=== PATIENT | female | born 1935 | race Caucasian/White ===

== ENCOUNTER → 2018-01-31 | Outpatient (CLI) | payer OTHER ==
[~2018-01-31] MED LIST: CALCIUM CITRAT250 MG; COLESTID1 GM; FLEXERIL PO; FLONASE 0.05%50 MCG NASAL; GLUCOSAMINE &1 EACH; JANUVIA100 MG; LEVEMIR FL100 UNIT/1 SQ; LEVEMIR FL100 UNIT/2 SUBQ; LOPRESSOR 50 MG50 M1 PO; LORAZEPAM 0.50.5 MG PO; PREDNISONE 20 M20 M1 PO; PREDNISONE50 MG PO; PRINZIDE 20-251 EACH PO; TIZANIDINE HCL4 MG PO; VALSARTAN/HCTZ; VENTOLIN HFA 1818 GM INH; VITAMIN D-32000 UNIT PO; VOLTAREN GEL 1100 G2; ZPAK PO
== END ==
LOC: M.RAD 14:15
DX: M51.36 Other intervertebral disc degeneration, lumbar region (principal); M43.27 Fusion of spine, lumbosacral region; I70.0 Atherosclerosis of aorta

== ENCOUNTER → 2018-05-27 | Outpatient (CLI) | payer OTHER | LOC: M.RAD 11:03 | DX: S92.322A Displaced fracture of second metatarsal bone, left foot, initial encounter for closed fracture (principal); S97.82XA Crushing injury of left foot, initial encounter; X58.XXXA Exposure to other specified factors, initial encounter; Y93.89 Activity, other specified; Y92.89 Other specified places as the place of occurrence of the external cause; Y99.8 Other external cause status; W19.XXXA Unspecified fall, initial encounter ==

== ENCOUNTER 2018-11-30 04:53 | Emergency (ER) | payer OTHER ==
[~2018-11-30] VITALS: Ht 154.9 cm; Wt 93.0 kg
[2018-11-30] MEDS ORDERED: FLONASE 0.05%50 MCG (05:07)
[2018-11-30] MEDS ORDERED: IRBESARTAN-HCT1 EACH (05:08)
[2018-11-30] MEDS ORDERED: ZETIA10 MG (05:08)
[2018-11-30 05:31] LABS: ABSOLUTE BASOPHILS 0.1 thou/uL (0.0-0.2); ABSOLUTE EOSINOPHILS 0.1 thou/uL (0.0-0.7); ABSOLUTE LYMPHOCYTES 2.2 thou/uL (0.8-5.3); ABSOLUTE MONOCYTES 0.4 thou/uL (0.0-1.2); ABSOLUTE NEUTROPHILS 3.4 thou/uL (1.6-8.1); BASOPHILS 0.8 %; HEMATOCRIT 39.7 % (37.0-47.0); HEMOGLOBIN 13.5 gm/dL (12.0-15.0); LYMPHOCYTES 35.9 %; MCH 28.4 pg (26.0-34.0); MCHC 33.9 g/dL (28.0-37.0); MCV 83.7 fL (80.0-100.0); MONOCYTES 6.5 %; MPV 9.2 fl. (7.2-11.1); NUCLEATED RBCS 0 /100WBC; PLATELET COUNT* 186 thou/uL (150-400); POLYS 55.8 %; RBC 4.74 mil/uL (4.20-5.00); RDW-CV 13.8 % (10.5-14.5); WBC 6.2 thou/uL (4.0-11.0)
[2018-11-30 05:55] LABS: ALKALINE PHOSPHATASE 89 U/L (46-116); ANION GAP 12 mmol/L (7-16); BUN 26 mg/dL (7-18); CALCIUM 9.3 mg/dL (8.5-10.1); CHLORIDE 105 mmol/L (98-107); CO2 26 mmol/L (21-32); CREATININE 1.3 mg/dL (0.6-1.3); GLUCOSE 263 mg/dL (70-99); POTASSIUM 3.9 mmol/L (3.5-5.1); SGOT 23 U/L (15-37); SGPT 36 U/L (30-65); SODIUM 143 mmol/L (136-145); TOTAL BILIRUBIN 0.2 mg/dL (<0.1-1.0); TOTAL PROTEIN 6.2 g/dL (6.4-8.2); TROPONIN-I LEVEL <0.06 ng/mL (<0.06)
[2018-11-30] MEDS ORDERED: PREDNISONE50 MG PO (05:59)
[2018-11-30] MEDS ORDERED: VENTOLIN HFA 1818 GM INH (05:59)
[2018-11-30 06:29] VITALS: BP 122/63
--- NOTE | 2018-11-30 12:09 | EKG ---
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 : 1935 Requested By: Amado Marvin Order Number: [id number] MD: Winston Briones Measurements Intervals [place] Rate: 58 P: 2 VT: 250 QRS: -21 QRSD: 94 T: 91 QT: 453 QTc: 445 Interpretive Statements Sinus rhythm Prolonged VT interval Borderline left axis deviation Borderline T wave abnormalities Compared to ECG 02/24/2017 03:23:42 T-wave abnormality now present Electronically Signed On 11-30-2018 12:09:22 CDT by Winston Briones [email or web address] <ELECTRONICALLY SIGNED> By: Winston Briones MD, [facility] 11/30/18 1209 0500 0500 Winston Briones MD, [facility] /EPI
== END 2018-11-30 06:29 | disposition home or self-care (01) ==
LOC: M.ERS 04:53
PROVIDERS: Emergency Medicine Emergency Medical Services
DX: J45.909 Unspecified asthma, uncomplicated (principal); I10 Essential (primary) hypertension; E11.9 Type 2 diabetes mellitus without complications; Z90.49 Acquired absence of other specified parts of digestive tract; Z90.710 Acquired absence of both cervix and uterus; Z87.891 Personal history of nicotine dependence; Z88.1 Allergy status to other antibiotic agents

== ENCOUNTER 2018-12-18 05:33 | Inpatient (IN) | payer OTHER ==
[~2018-12-18] VITALS: Ht 154.9 cm; Wt 108.0 kg
[~2018-12-18 05:33] MED LIST changes: -COLESTID1 GM; +COLESTID1 GM PO; +FLONASE 0.05%50 MCG; +IRBESARTAN-HCT1 EACH PO; -JANUVIA100 MG; +JANUVIA100 MG PO; +ZETIA10 MG
[2018-12-18 05:36] VITALS: BP 153/62
[2018-12-18] MEDS ORDERED: PROAIR HFA8.5 GM INH (05:54)
[2018-12-18] MEDS ORDERED: LEVEMIR SUBQ (05:55)
[2018-12-18 06:13] LABS: APTT 27.3 Seconds (25.0-31.3); PROTIME 10.5 Seconds (9.20-11.50)
[2018-12-18 06:19] LABS: ANION GAP 8 mmol/L (7-16); BUN 18 mg/dL (7-18); CALCIUM 9.3 mg/dL (8.5-10.1); CHLORIDE 105 mmol/L (98-107); CO2 27 mmol/L (21-32); CREATININE 1.1 mg/dL (0.6-1.3); GLUCOSE 286 mg/dL (70-99); POTASSIUM 4.1 mmol/L (3.5-5.1); SODIUM 140 mmol/L (136-145)
[2018-12-18 06:21] LABS: ABSOLUTE BASOPHILS 0.1 thou/uL (0.0-0.2); ABSOLUTE EOSINOPHILS 0.1 thou/uL (0.0-0.7); ABSOLUTE LYMPHOCYTES 1.8 thou/uL (0.8-5.3); ABSOLUTE MONOCYTES 0.4 thou/uL (0.0-1.2); ABSOLUTE NEUTROPHILS 3.8 thou/uL (1.6-8.1); BASOPHILS 0.8 %; EOSINOPHILS 1.4 %; HEMATOCRIT 41.8 % (37.0-47.0); LYMPHOCYTES 29.8 %; MCH 28.2 pg (26.0-34.0); MCHC 33.5 g/dL (28.0-37.0); MCV 84.1 fL (80.0-100.0); MONOCYTES 6.5 %; MPV 9.7 fl. (7.2-11.1); NUCLEATED RBCS 0 /100WBC; PLATELET COUNT* 192 thou/uL (150-400); POLYS 61.5 %; RBC 4.97 mil/uL (4.20-5.00); RDW-CV 13.7 % (10.5-14.5); WBC 6.1 thou/uL (4.0-11.0)
[2018-12-18 06:22] LABS: ALBUMIN 3.2 g/dL (3.4-5.0); ALKALINE PHOSPHATASE 106 U/L (46-116); LIPASE 218 U/L (73-393); MAGNESIUM 1.8 mg/dL (1.8-2.4); NT-PRO BRAIN NAT PEPTIDE 781 pg/mL (<300); SGOT 29 U/L (15-37); SGPT 47 U/L (30-65); TOTAL BILIRUBIN 0.4 mg/dL (<0.1-1.0); TOTAL PROTEIN 6.3 g/dL (6.4-8.2); TROPONIN-I LEVEL <0.06 ng/mL (<0.06)
[2018-12-18 08:09] VITALS: BP 128/51
[2018-12-18 08:30] VITALS: BP 108/57
[2018-12-18 10:30] VITALS: BP 148/60
--- NOTE | 2018-12-18 10:56 | EKG ---
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: Augusta PINEDA : 1935 Requested By: Aaron Kinney Order Number: [id number] MD: Tomy Johnson Measurements Intervals [place] Rate: 54 P: 2 CA: 205 QRS: -25 QRSD: 91 T: 118 QT: 479 QTc: 454 Interpretive Statements Sinus rhythm Probable LVH with secondary repol abnrm Compared to ECG 11/30/2018 05:00:24 First degree AV block no longer present T-wave abnormality no longer present Electronically Signed On 12-18-2018 10:56:26 CDT by Tomy Johnson [email or web address] <ELECTRONICALLY SIGNED> By: Tomy Johnson MD, [facility] 12/18/18 1056 0543 0543 Tomy Johnson MD, FAC /EPI
--- NOTE | 2018-12-18 11:26 | NUR ---
PT TO UNIT FROM ORTHO FLOOR AT APPROX 1030. PT ALERT AND ORIENTED. TELE TRACKING NSR WITH 1ST AVB AND ALL VSS ON 2L. PT SSTATES BREATHING FEELS IMPROVED WITH SUPP O2. DENIES CP, SOA. EDUCATED ON SAFETY AND PLAN OF CARE. PLEASE SEE ASSESSMENT FOR ADDITIONAL INFORMATION. WILL CONT TO MONITOR
--- NOTE | 2018-12-18 12:33 | NUR ---
Nutrition: Consult received "autopopulate." Pt admitted with SOA. Hx COPD, former smoker. Wt is ~205#. Albumin 3.2, BG 289-425. RX: solumedrol, insulin, D3, linagliptin. Acute bronchitis and COPD exac. Apparently, breathing is better. GOALS: better BG control, >75% of meals consumed. Low nutrition risk at this time.
[2018-12-18 15:29] VITALS: BP 157/55
--- NOTE | 2018-12-18 16:18 | 2DMMODE ---
[place] [address] 2 D/M-MODE ECHOCARDIOGRAM Name: LORENZA TRAMMELL Room: [address] IN [facility]#: [id number] Admission: 12/18/18 Attend Phys: Bartolo Arevalo Discharge: Date of : 39 Date of Service: 12/18/18 1618 Report #: [id number] THIS REPORT FOR: //name// APPROVED REPORT Study performed: 12/18/2018 13:05:30 EXAM: Comprehensive 2D, Doppler, and color-flow Echocardiogram Patient Location: In-Patient Room #: [facility] Status: routine BSA: 1.91 HR: 73 bpm BP: 148/60 mmHg Rhythm: NSR Other Information Study Quality: Good Indications Elevated bnp 2D Dimensions IVSd: 14.17 (7-11mm) LVOT Diam: 19.62 (18-24mm) LVDd: 47.32 mm PWd: 13.25 (7-11mm) Ascending Ao: 29.69 (22-36mm) LVDs: 28.26 (25-40mm) Aortic Root: 30.42 mm Volumes Left Atrial Volume (Systole) LA ESV Index: 60.30 mL/m2 Aortic Valve AoV Peak Jake.: 1.81 m/s AO Peak Gr.: 13.09 mmHg LVOT Max P.00 mmHg AO Mean Gr.: 7.43 mmHg LVOT Mean P.67 mmHg LVOT Max V: 1.87 m/s AO V2 VTI: 37.53 cm LVOT Mean V: 1.30 m/s JASPREET (VTI): 3.05 cm2 LVOT V1 VTI: 37.88 cm Mitral Valve MV Mean Gr.: 8.43 mmHg E/A Ratio: 0.79 MV Decel. Time: 334.29 ms MV E Max Jake.: 1.43 m/[place] [address] 2 D/M-MODE ECHOCARDIOGRAM Name: LORENZA TRAMMELL Room: [address] IN ..#: [id number] Admission: 12/18/18 Attend Phys: Bartolo Arevalo Discharge: Date of : 39 Date of Service: 12/18/18 1618 Report #: [id number] MV PHT: 96.94 ms MVA (PHT): 2.27 cm2 TDI E/Lateral E': 14.30 E/Medial E': 28.60 Medial E' Jake.: 0.05 m/s Lateral E' Jake.: 0.10 m/s Pulmonary Valve PV Peak Jake.: 1.01 m/s PV Peak Gr.: 4.12 mmHg Left Ventricle The left ventricle is normal size. There is normal LV segmental wall motion. Moderate concentric left ventricular hypertrophy. Left ventricular systolic function is normal. The left ventricular ejection fraction is within the normal range. LVEF is 65-70%. Grade I - abnormal relaxation pattern. Right Ventricle The right ventricle is normal size. The right ventricular systolic function is normal. Atria Left atrium is severely dilated. The right atrium size is normal. Aortic Valve The aortic valve is normal in structure. No aortic regurgitation is present. There is no aortic valvular stenosis. Mitral Valve Severe mitral annular calcification.Reduced mitral leaflet excursion. There is no mitral valve regurgitation noted. Moderate mitral stenosis. Tricuspid Valve The tricuspid valve is normal in structure. Unable to assess PA pressure. Trace tricuspid regurgitation. Pulmonic Valve The pulmonary valve is normal in structure. Trace pulmonic regurgitation. Great Vessels The aortic root is normal in size. [place] [address] 2 D/M-MODE ECHOCARDIOGRAM Name: LORENZA TRAMMELL Room: [address] IN [facility]#: [id number] Admission: 12/18/18 Attend Phys: Bartolo Arevalo Discharge: Date of : 39 Date of Service: 12/18/18 1618 Report #: [id number] Pericardium There is no pericardial effusion. <Conclusion> LVEF is 65-70%. Moderate concentric left ventricular hypertrophy. There is normal LV segmental wall motion. Severe mitral annular calcification.Reduced mitral leaflet excursion. Moderate mitral stenosis. There is no mitral valve regurgitation noted. Left atrium is severely dilated. There is no aortic valvular stenosis. No aortic regurgitation is present. <ELECTRONICALLY SIGNED> By: Tomy Johnson MD, FACC 12/18/18 1618 1618 1618 Tomy Johnson MD, FACC /INF
[2018-12-18 19:30] VITALS: BP 171/80
[2018-12-19 00:02] VITALS: BP 164/63
[2018-12-19 04:00] VITALS: BP 130/55
[2018-12-19 04:01] LABS: HEMATOCRIT 39.5 % (37.0-47.0); HEMOGLOBIN 13.4 gm/dL (12.0-15.0); MCH 28.8 pg (26.0-34.0); MCV 84.6 fL (80.0-100.0); MPV 9.5 fl. (7.2-11.1); RBC 4.67 mil/uL (4.20-5.00); RDW-CV 13.9 % (10.5-14.5); WBC 7.2 thou/uL (4.0-11.0)
[2018-12-19 04:23] LABS: CALCIUM 9.6 mg/dL (8.5-10.1); CREATININE 1.4 mg/dL (0.6-1.3); MAGNESIUM 1.7 mg/dL (1.8-2.4); POTASSIUM 4.1 mmol/L (3.5-5.1)
--- NOTE | 2018-12-19 05:48 | NUR ---
VITALS WNL. SEE MAR. SEE CHARTING. FALL PRECAUTIONS IN PLACE. HOURLY ROUNDING FOR SAFETY.
[2018-12-19 08:00] VITALS: BP 109/51
--- NOTE | 2018-12-19 15:13 | NUR ---
Pt is A&O. Resides at home. Independent. No home o2. No hx of HH or SNF. CM provided Pt with DPOA paperwork, Pt was on the phone and did not want to complete now. Goal is home at ma. Following.
[2018-12-19 16:11] VITALS: BP 122/44
--- NOTE | 2018-12-19 16:51 | NUR ---
RECEIVED REPORT FROM PETER TIPTON. ASSUMED CARE OF PT AROUND 0730. PT ALERT AND ORIENTED X4. VSS. BENEFITS ANALYST IN PLACE THIS AM TRACING SR WITH 1ST DEGREE; PT CHANGED TO MS STATUS. NEW IV STARTED TO LEFT FA. BLOOD GLUCOSE CONSISTENTLY HIGH. DR CASTANEDA MESSAGED. SEE ADJUSTMENTS TO EMAR. PT UP TO BATHROOM WITH SBA, VOIDING WELL. FAMILY VISITED THIS AM. PT TOLERATING DIET. MEDS PER EMAR. PT REPORTED HEADACHE THIS AM THAT RESOLVED AFTER BREAKFAST. PT HOPING TO GO HOME TOMORROW. PT CURRENTLY SITTING UP IN BED. CALL LIGHT IS WITHIN REACH. FALL PRECAUTIONS ARE IN PLACE. HOURLY ROUNDING PERFORMED. WCTM FOR DURATION OF SHIFT.
[2018-12-19 19:30] VITALS: BP 148/64
[2018-12-19 23:54] VITALS: BP 145/65
--- NOTE | 2018-12-20 06:09 | NUR ---
VITALS WNL. SEE MAR. SEE CHARTING. FALL PRECAUTIONS IN PLACE. HOURLY ROUNDING FOR SAFETY.
[2018-12-20 08:00] VITALS: BP 106/39
[2018-12-20 10:21] LABS: CALCIUM 9.6 mg/dL (8.5-10.1); CREATININE 1.2 mg/dL (0.6-1.3); POTASSIUM 4.3 mmol/L (3.5-5.1)
[2018-12-20] MEDS ORDERED: NEBULIZER MISCELL (11:15)
[2018-12-20] MEDS ORDERED: IPRAT-ALBUT 0.5-3 ML INH (11:15)
[2018-12-20] MEDS ORDERED: PREDNISONE 10 M10 MG PO (11:15)
[2018-12-20] MEDS ORDERED: LEVAQUIN 500 M500 M2 PO (11:15)
[2018-12-20 11:45] VITALS: BP 106/39
[2018-12-20] MEDS ORDERED: METOPROLOL TART25 MG PO (11:59)
[2018-12-20] MEDS ORDERED: TOPROL XL25 MG PO (12:00)
[2018-12-20] MEDS ORDERED: LOPRESSOR25 PO (12:18)
== END 2018-12-20 14:05 | disposition home or self-care (01) | DRG 193 ==
LOC: M.ERS 05:33 → M.2W 06:35 → M.TBA-ER 06:35 → M.ORTHSURG 08:25 → M.2W 10:03
PROVIDERS: Family Medicine; Internal Medicine; ADMIT Internal Medicine
DX: J15.9 Unspecified bacterial pneumonia (principal); J96.01 Acute respiratory failure with hypoxia; J44.1 Chronic obstructive pulmonary disease with (acute) exacerbation; J44.0 Chronic obstructive pulmonary disease with (acute) lower respiratory infection; I10 Essential (primary) hypertension; E11.9 Type 2 diabetes mellitus without complications; J20.9 Acute bronchitis, unspecified; Z90.710 Acquired absence of both cervix and uterus; Z90.49 Acquired absence of other specified parts of digestive tract; Z79.84 Long term (current) use of oral hypoglycemic drugs; Z88.1 Allergy status to other antibiotic agents; Z87.891 Personal history of nicotine dependence

== ENCOUNTER → 2019-03-30 | Outpatient (CLI) | payer OTHER ==
[~2019-03-30] MED LIST changes: +IPRAT-ALBUT 0.5-3 ML INH; +LEVAQUIN 500 M500 M2 PO; +LEVEMIR SUBQ; +LOPRESSOR25 PO; +METOPROLOL TART25 MG PO; +NEBULIZER MISCELL; +PREDNISONE 10 M10 MG PO; +PROAIR HFA8.5 GM INH; +TOPROL XL25 MG PO
== END ==
LOC: M.RAD 10:15
DX: Z12.31 Encounter for screening mammogram for malignant neoplasm of breast (principal)

== ENCOUNTER → 2019-04-03 | Outpatient (CLI) | payer OTHER | LOC: M.ULTRA 14:46 | DX: N60.02 Solitary cyst of left breast (principal) ==

== ENCOUNTER 2019-05-11 19:07 | Emergency (ER) | payer OTHER ==
[~2019-05-11] VITALS: Ht 154.9 cm; Wt 95.3 kg
[2019-05-11] MEDS ORDERED: KEFLEX500 M1 PO (21:52)
[2019-05-11 22:15] VITALS: BP 181/61
== END 2019-05-11 22:15 | disposition home or self-care (01) ==
LOC: M.ERS 19:07
DX: S91.201A Unspecified open wound of right great toe with damage to nail, initial encounter (principal); I10 Essential (primary) hypertension; E11.9 Type 2 diabetes mellitus without complications; Z90.49 Acquired absence of other specified parts of digestive tract; Z90.710 Acquired absence of both cervix and uterus; Z98.890 Other specified postprocedural states; Z79.4 Long term (current) use of insulin; Z88.1 Allergy status to other antibiotic agents; Z87.891 Personal history of nicotine dependence; W22.8XXA Striking against or struck by other objects, initial encounter; Y93.89 Activity, other specified; Y92.000 Kitchen of unspecified non-institutional (private) residence as the place of occurrence of the external cause; Y99.8 Other external cause status

== ENCOUNTER 2019-06-28 06:45 | Emergency (ER) | payer OTHER ==
[~2019-06-28] VITALS: Ht 157.5 cm; Wt 95.3 kg
[~2019-06-28 06:45] MED LIST changes: +KEFLEX500 M1 PO
[2019-06-28 08:12] LABS: ABSOLUTE BASOPHILS 0.1 thou/uL (0.0-0.2); ABSOLUTE LYMPHOCYTES 3.6 thou/uL (0.8-5.3); ABSOLUTE MONOCYTES 0.8 thou/uL (0.0-1.2); ABSOLUTE NEUTROPHILS 7.5 thou/uL (1.6-8.1); BASOPHILS 0.4 %; EOSINOPHILS 0.4 %; HEMOGLOBIN 13.3 gm/dL (12.0-15.0); LYMPHOCYTES 29.8 %; MCH 28.2 pg (26.0-34.0); MCHC 34.2 g/dL (28.0-37.0); MCV 82.4 fL (80.0-100.0); MONOCYTES 6.8 %; MPV 9.1 fl. (7.2-11.1); NUCLEATED RBCS 0 /100WBC; PLATELET COUNT* 160 thou/uL (150-400); POLYS 62.6 %; RBC 4.73 mil/uL (4.20-5.00); RDW-CV 13.7 % (10.5-14.5)
[2019-06-28 08:28] LABS: CALCIUM 9.6 mg/dL (8.5-10.1); POTASSIUM 3.4 mmol/L (3.5-5.1)
[2019-06-28 08:32] LABS: ALBUMIN 3.3 g/dL (3.4-5.0); TOTAL BILIRUBIN 0.8 mg/dL (<0.1-1.0); TOTAL PROTEIN 6.5 g/dL (6.4-8.2)
[2019-06-28 08:35] LABS: INFLUENZA A ANTIGEN Negative (Negative); INFLUENZA B ANTIGEN Negative (Negative)
[2019-06-28] MEDS ORDERED: DOXYCYCLINE 10100 MG PO (08:49)
[2019-06-28] MEDS ORDERED: PREDNISONE 20 M20 M1 PO (08:49)
[2019-06-28 09:13] VITALS: BP 133/78
== END 2019-06-28 09:14 | disposition home or self-care (01) ==
LOC: M.ERS 06:45
PROVIDERS: Family Medicine
DX: J40 Bronchitis, not specified as acute or chronic (principal); I10 Essential (primary) hypertension; E11.9 Type 2 diabetes mellitus without complications; Z90.710 Acquired absence of both cervix and uterus; Z90.49 Acquired absence of other specified parts of digestive tract; Z87.891 Personal history of nicotine dependence; Z88.1 Allergy status to other antibiotic agents; Z88.8 Allergy status to other drugs, medicaments and biological substances; Z98.890 Other specified postprocedural states

== ENCOUNTER 2021-01-21 10:13 | Inpatient (IN) | payer OTHER ==
[~2021-01-21] VITALS: Ht 165.1 cm; Wt 94.3 kg
[~2021-01-21 10:13] MED LIST changes: +DOXYCYCLINE 10100 MG PO
[2021-01-21 10:14] VITALS: BP 162/66
[2021-01-21 10:41] LABS: URINE BILIRUBIN NEGATIVE (Negative); URINE BLOOD 3+ (Negative); URINE CLARITY SL CLOUDY; URINE COLOR YELLOW; URINE GLUCOSE-RANDOM NEGATIVE (Negative); URINE KETONES TRACE (Negative); URINE LEUKOCYTES-REFLEX 1+ (Negative); URINE NITRITE-REFLEX NEGATIVE (Negative); URINE PROTEIN 2+ (Negative); URINE SPECIFIC GRAVITY 1.025 (1.005-1.030); URINE UROBILINOGEN 0.2 E.U./dl (0.2-1.0)
[2021-01-21 10:46] LABS: BACTERIA-REFLEX >30 Many /HPF (None Seen); MUCUS 0-3 Light strn/LPF (None Seen)
[2021-01-21 10:47] LABS: URINE WBC-REFLEX 6-15 Few /HPF (0-5)
[2021-01-21 10:48] LABS: CRYSTALS None Seen /LPF (None Seen); FINE GRANULAR CASTS 0-3 Few /LPF (None Seen); HYALINE CASTS 0-3 Few /LPF (None Seen); SQUAMOUS 0-3 Few /LPF (0-3); URINE RBC 0-2 Rare /HPF (0-2)
[2021-01-21 11:03] LABS: HEMATOCRIT 40.2 % (37.0-47.0); MCH 28.8 pg (26.0-34.0); MCHC 34.7 g/dL (28.0-37.0); MCV 83.1 fL (80.0-100.0); MPV 9.5 fl. (7.2-11.1); NUCLEATED RBCS 0 /100WBC; PLATELET COUNT* 167 thou/uL (150-400); RBC 4.84 mil/uL (4.20-5.00); RDW-CV 13.9 % (10.5-14.5); WBC 10.5 thou/uL (4.0-11.0)
[2021-01-21 11:14] LABS: CALCIUM 9.6 mg/dL (8.5-10.1); CREATININE 1.6 mg/dL (0.6-1.3); POTASSIUM 3.7 mmol/L (3.5-5.1)
[2021-01-21 11:29] LABS: ALBUMIN 2.8 g/dL (3.4-5.0); TOTAL BILIRUBIN 0.9 mg/dL (<0.1-1.0)
[2021-01-21 11:41] LABS: ABSOLUTE BASOPHILS 0.1 thou/uL (0.0-0.2); ABSOLUTE LYMPHOCYTES 0.5 thou/uL (0.8-5.3); ABSOLUTE MONOCYTES 0.4 thou/uL (0.0-1.2); ABSOLUTE NEUTROPHILS 9.5 thou/uL (1.6-8.1); PLATELET ESTIMATE ADEQUATE
--- NOTE | 2021-01-21 12:57 | NUR ---
PT GIVEN LUNCH
[2021-01-21 14:50] VITALS: BP 147/51
[2021-01-21 15:00] VITALS: BP 151/52
[2021-01-21 20:00] VITALS: BP 135/54
[2021-01-22 03:56] LABS: ABSOLUTE BASOPHILS 0.1 thou/uL (0.0-0.2); ABSOLUTE LYMPHOCYTES 0.8 thou/uL (0.8-5.3); ABSOLUTE MONOCYTES 0.5 thou/uL (0.0-1.2); ABSOLUTE NEUTROPHILS 6.6 thou/uL (1.6-8.1); BASOPHILS 0.6 %; EOSINOPHILS 0.3 %; HEMOGLOBIN 13.4 gm/dL (12.0-15.0); LYMPHOCYTES 10.4 %; MCH 28.5 pg (26.0-34.0); MCHC 34.3 g/dL (28.0-37.0); MCV 83.2 fL (80.0-100.0); MONOCYTES 6.6 %; MPV 8.8 fl. (7.2-11.1); NUCLEATED RBCS 0 /100WBC; PLATELET COUNT* 156 thou/uL (150-400); POLYS 82.1 %; RBC 4.69 mil/uL (4.20-5.00)
[2021-01-22 04:09] LABS: CALCIUM 9.2 mg/dL (8.5-10.1); CREATININE 1.6 mg/dL (0.6-1.3); POTASSIUM 3.5 mmol/L (3.5-5.1)
--- NOTE | 2021-01-22 04:43 | NUR ---
PT A&O X 4, FORGETFUL AT TIMES. VSS ON RA. MEDS GIVEN ORDERED. TYLENOL GIVEN FOR PAIN IN TAILBONE. INCONTINENT OF BLADDER. TURNS, BED CHANGES COMPLETED. CALL LIGHT WITHIN REACH. WILL CONTINUE TO MONITOR.
[2021-01-22 08:00] VITALS: BP 122/45
--- NOTE | 2021-01-22 14:14 | EKG ---
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 : 1935 Requested By: Amado Marvin Order Number: [id number] MD: Winston Briones Measurements Intervals [place] Rate: 86 P: -55 CT: 234 QRS: -37 QRSD: 91 T: 48 QT: 383 QTc: 458 Interpretive Statements Sinus rhythm with first-degree AV block Left axis deviation Abnormal R-wave progression, late transition Baseline wander in lead(s) V3 Compared to ECG 12/18/2018 05:43:39 First degree AV block now present Left-axis deviation now present Electronically Signed On 01-22-2021 14:14:44 CDT by Winston Briones [email or web address] <ELECTRONICALLY SIGNED> By: Winston Briones MD, [facility] 01/22/21 1414 1018 1018 Winston Briones MD, [facility] /EPI
[2021-01-22 16:16] VITALS: BP 164/53
--- NOTE | 2021-01-22 18:20 | NUR ---
PATIENT RESTING IN BED. DAUGHTER AT BEDSIDE, INVOLVED WITH CARES. BED IN LOW/LOCKED POSTION. BED ALARM ON. CALL LIGHT WITHIN REACH. ALERT AND ORIENTED X2-3. IV TO LEFT WRIST, SALINE LOCKED, PATENT. DRESSING C/D/I. NO C/O PAIN/DISCOMFORT. TYLENOL GIVEN FOR TEMP 100.5. TEMP: 97.1. ALL QUESTIONS AND CONCERNS ADDRESSED.
[2021-01-22 20:00] VITALS: BP 140/59
[2021-01-23 04:23] LABS: HEMATOCRIT 35.9 % (37.0-47.0); HEMOGLOBIN 12.4 gm/dL (12.0-15.0); MCH 28.5 pg (26.0-34.0); MCHC 34.4 g/dL (28.0-37.0); MCV 82.7 fL (80.0-100.0); MPV 9.1 fl. (7.2-11.1); RBC 4.35 mil/uL (4.20-5.00); RDW-CV 13.7 % (10.5-14.5); WBC 7.7 thou/uL (4.0-11.0)
--- NOTE | 2021-01-23 04:38 | NUR ---
PT A&O X 3-4, FORGETFUL. VSS ON RA. MEDS GIVEN ORDERED. INCONTINENT. PT SLEPT MOST OF THE NIGHT. CALL LIGHT WITHIN REACH. WILL CONTINUE TO MONITOR.
[2021-01-23 05:03] LABS: CALCIUM 9.1 mg/dL (8.5-10.1); CREATININE 1.4 mg/dL (0.6-1.3); POTASSIUM 3.3 mmol/L (3.5-5.1)
[2021-01-23 08:00] VITALS: BP 132/91
--- NOTE | 2021-01-23 14:42 | NUR ---
Pt is A&O. Resides at home alone. Normally independent, Pt reports being weak recently. Pt just completed HH with [facility]. Pt states that she has fallen twice within the past week. Pt has a RW. No hx of SNF. 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 Therapy evals ordered. Goal is home at me, pending therapy evals. Following.
[2021-01-23 16:35] VITALS: BP 153/53
--- NOTE | 2021-01-23 17:57 | NUR ---
PATIENT RESTING IN BED. BLOOD SUGARS MONITORED THROUGH SHIFT, INSULIN GIVEN ORDERED. IV TO LEFT WRIST, SALINE LOCKED, PATENT. DRESSING C/D/I. BED IN LOW/LOCKED POSITION. BED ALARM ON. CALL LIGHT WITHIN REACH. NO QUESTIONS OR CONCERENS VOICED.
[2021-01-23 20:00] VITALS: BP 161/48
[2021-01-24 04:41] LABS: CALCIUM 9.3 mg/dL (8.5-10.1); CREATININE 1.3 mg/dL (0.6-1.3); POTASSIUM 3.3 mmol/L (3.5-5.1)
--- NOTE | 2021-01-24 04:44 | NUR ---
PT ALERT WITH SOME CONFUSION, SLEPT WELL ALL SHIFT. DID NOT REPORT ANY PAIN, NAUSEA OR DISCOMFORT. SHE IS ON ROOM AIR. INCONTINENT OF URINE. UP WITH ASSISTANCE TO CHAIR. PLAN TO WORK WITH PT/OT FOR REHAB PLACEMENT.SHE RECEIVED ALL MEDS SCHEDULED.
[2021-01-24 08:13] VITALS: BP 163/59
--- NOTE | 2021-01-24 11:44 | NUR ---
Pt does not qualify for ARU. CM discussed skilled with Pt, [facility]'s [facility]. CM requested [facility] to initiate insurance auth if clinically able to accept. Following.
[2021-01-24 16:45] VITALS: BP 140/46
--- NOTE | 2021-01-24 18:45 | NUR ---
PATIENT HAS REMAINED A&OX4 (FORGETFUL AT TIMES), PLEASANT AND COOPERATIVE WITH CARES. PATIENT NOW HAS NYSTATIN POWDER FOR REDDENED, IRRITATED PANNUS. PATIENT CURRENTLY LYING IN BED WITH EYES CLOSED, APPEARS TO BE SLEEPING; RESPIRATIONS EVEN AND UNLABORED, NO DISTRESS NOTED. BED ALARM ON FOR PATIENT SAFETY. CALL LIGHT AND FREQUENTLY USED ITEMS WITHIN REACH.
[2021-01-24 20:50] VITALS: BP 165/62
[2021-01-25 04:34] LABS: CALCIUM 9.4 mg/dL (8.5-10.1); CREATININE 1.1 mg/dL (0.6-1.3); POTASSIUM 3.3 mmol/L (3.5-5.1)
--- NOTE | 2021-01-25 06:57 | NUR ---
PT SLEPT WELL OVERNIGHT. AO X4, FORGETFUL AT TIMES. TAKES PILLS WHOLE WITH WATER. POTASSIUM GIVEN THIS MORNING FOR LAB 3.3. UP WITH 1 ASSIST TO BSC TO VOID, WEARS BRIEF FOR URINARY INCONTINENCE. NYSTATIN POWDER APPLIED TO R ABD FOLD ORDERED. TYLENOL GIVEN ONCE OVERNIGHT FOR CO GENERALIZED ACHES WITH GOOD RESULT. HS ACCUCHECK 191. AM LABS. DNR. PT TURNED AND REPOSITIONED Q2 HOURS AND PRN FOR SKIN CARE AND COMFORT. ABLE TO USE CALL LITE AND MKAE NEEDS KNOWN. PT OT. CM FOLLOWING FOR DC PLAN. RT TX. BED ALARM ON FOR SAFETY.
[2021-01-25 08:00] VITALS: BP 119/63
--- NOTE | 2021-01-25 13:20 | NUR ---
Continue to await insurance auth for [facility]. p: [phone] f:[phone]
[2021-01-25 16:34] VITALS: BP 144/44
--- NOTE | 2021-01-25 20:11 | NUR ---
PT UP TO CHAIR FOR BREAKFAST AND WORKED WITH OT THIS AM. VSS AFEBRILE. WILL CONTINUE TO MONITOR PLAN OF CARE.
[2021-01-26] VITALS: BP 159/59
--- NOTE | 2021-01-26 05:41 | NUR ---
PATIENT SLEPT WELL DURING THIS SHIFT. PT ALERT/ORIENTED X2; FORGETFUL. PT TURNED Q2H PER PROTOCAL. PT IS ON ROOM AIR. PT IS INCONTINENT OF URINE; ALSO WILL CALL FOR BSC. BLOOD SUGAR AT 2100 = 192; INSULIN GIVEN ORDERED. FREQUENTLY USED ITEMS AND CALL LIGHT WITHIN REACH. SIDERAILS UPX3 AND BED ALARM ON. WILL CONTINUE TO MONITOR.
[2021-01-26 08:00] VITALS: BP 145/55
--- NOTE | 2021-01-26 13:55 | NUR ---
Continue to await insurance auth for skilled. CM checked with [employer] [facility], continue to await
[2021-01-26 16:13] VITALS: BP 176/56
--- NOTE | 2021-01-26 17:36 | NUR ---
PT DISCHARGED TO [facility] THIS EVENING PER WHEEL CHAIR VAN. SALINE LOCK REMOVED HUB INTACT. REPORT CALLED TO JEANINE stern WHO IS CHARGE AT [facility]. PT TOOK ALL HER BELONGINGS. PACKET SENT TO [facility], WITH WHEEL CHAIR VAN.
== END 2021-01-26 17:15 | DRG 682 ==
LOC: M.ERS 10:13 → M.ORTHSURG 11:45 → M.TBA-ER 11:45 → M.ORTHSURG 15:17
PROVIDERS: Emergency Medicine Emergency Medical Services; Family Medicine; Internal Medicine; ADMIT Internal Medicine; ATTEND Internal Medicine
DX: N17.0 Acute kidney failure with tubular necrosis (principal); G93.41 Metabolic encephalopathy; N39.0 Urinary tract infection, site not specified; I10 Essential (primary) hypertension; E11.9 Type 2 diabetes mellitus without complications; R31.9 Hematuria, unspecified; E86.0 Dehydration; B96.89 Other specified bacterial agents as the cause of diseases classified elsewhere; E87.6 Hypokalemia; Z20.822 Contact with and (suspected) exposure to COVID-19; Z90.710 Acquired absence of both cervix and uterus; Z90.49 Acquired absence of other specified parts of digestive tract; Z79.899 Other long term (current) drug therapy; Z79.4 Long term (current) use of insulin; Z88.8 Allergy status to other drugs, medicaments and biological substances; Z91.09 Other allergy status, other than to drugs and biological substances

== ENCOUNTER → 2021-09-07 | Outpatient (CLI) | payer OTHER | LOC: M.ULTRA 11:24 | PROVIDERS: ATTEND Registered Nurse Diabetes Educator | DX: E04.1 Nontoxic single thyroid nodule (principal); E83.52 Hypercalcemia ==